=== PATIENT | female | born 1990 | race Hispanic/Latino ===

== ENCOUNTER 2018-11-29 22:07 | Emergency (ER) | payer BC, OTHER ==
[2018-11-29 23:38] LABS: Absolute Lymphocytes (CBC) 2.5 K/uL (0.7-4.9); Absolute Monocytes 0.6 K/uL (0.1-1.3); Absolute Neutrophil 4.4 K/uL (1.8-8.0); Basophils % 0.6 % (0-1.3); Eosinophils % 2.6 % (0-4.4); Hematocrit 39.2 % (36.0-45.0); Lymphocytes % 31.6 % (15.3-44.8); MPV 10.5 fL (7.6-11.3); Monocytes % 8.3 % (3.3-12.3); RBC Red Blood Cell Count 5.13 M/uL (3.86-4.86)
[2018-11-29 23:54] LABS: BUN Blood Urea Nitrogen 9 mg/dL (7-18); Bicarbonate 30 mmol/L (21-32); Glucose Level 96 mg/dL (74-106); Sodium Level 141 mmol/L (136-145); Troponin (Emerg Dept Use Only) < 0.02 ng/mL (0.0-0.045)
[2018-11-30] MEDS ORDERED: KETOROLAC 30 MG/ML INJ ONE (00:19)
--- NOTE | 2018-11-30 00:25 | ER ---
Nurse's Notes [facility] Name: Светлана Mcgregor Age: 28 yrs Sex: Female : 1990 Arrival Date: 11/29/2018 Time: 22:09 Bed 19 Private MD: Diaz Bruner E Diagnosis: Chest pain, unspecified Presentation: 11/29 22:21 Presenting complaint: Patient states: started to have left chest tightness whenever I rr5 stretch my arm and the pain going to my left arm. pain score of 5/10. I feel dizzy, light headed and nauseous also. Transition of care: patient was not received from another setting of care. Onset of symptoms was November 29, 2018. Risk Assessment: Do you want to hurt yourself or someone else? Patient reports no desire to harm self or others. Initial Sepsis Screen: Does the patient meet any 2 criteria? No. Patient's initial sepsis screen is negative. Does the patient have a suspected source of infection? No. Patient's initial sepsis screen is negative. Care prior to arrival: None. 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 - Social history:: Smoking status: Patient/guardian denies using tobacco, Patient/guardian denies using alcohol, street drugs. - Ebola Screening: : Patient negative for fever greater than or equal to 101.5 degrees Fahrenheit, and additional compatible Ebola Virus Disease symptoms Patient denies exposure to infectious person Patient denies travel to an Ebola-affected area in the 21 days before illness onset. Screenin:25 Abuse screen: Denies threats or abuse. Denies injuries from another. Nutritional rr5 screening: No deficits noted. Tuberculosis screening: No symptoms or risk factors identified. Fall Risk IV access (20 points). Total Puentes Fall Scale indicates No Risk (0-24 pts). Assessment: 22:25 General: Appears in no apparent distress. uncomfortable, Behavior is calm, cooperative, rr5 appropriate for age. Pain: Complains of pain in chest Pain radiates to left shoulder Pain currently is 6 out of 10 on a pain scale. Quality of pain is described as aching, Pain began gradually, Is intermittent, Aggravated by increased activity. Neuro: Level of Consciousness is awake, alert, obeys commands, Oriented to person, place, time, situation, Appropriate for age Reports dizziness, light headed. Cardiovascular: Reports chest pain, Capillary refill < 3 seconds Patient's skin is warm and dry. 22:25 Respiratory: Airway is patent Respiratory effort is even, unlabored, Respiratory rr5 pattern is regular, symmetrical. GI: Reports nausea. : No signs and/or symptoms were reported regarding the genitourinary system. EENT: No signs and/or symptoms were reported regarding the EENT system. Derm: Skin is intact, Skin temperature is warm. Musculoskeletal: Capillary refill < 3 seconds, Range of motion: intact in all extremities. 23:23 Reassessment: Patient appears in no apparent distress at this time. No changes from rr5 previously documented assessment. 11/30 00:30 Reassessment: Patient appears in no apparent distress at this time. refused for pain rr5 medication she feels fine as verbalized. discharge instruction given and explained without complaints made. Patient states feeling better. Patient states symptoms have improved. Vital Signs: 11/29 22:21 BP 119 / 68; Pulse 75; Resp 16; Temp 98.2; Pulse Ox 100% ; Weight 83.91 kg; Height 5 rr5 ft. 3 in. (160.02 cm); Pain 5/10; 23:20 BP 99 / 60; Pulse 77; Resp 16; Pulse Ox 99% ; rr5 11/30 00:30 BP 103 / 70; Pulse 75; Resp 16; Pulse Ox 99% ; rr5 11/29 22:21 Body Mass Index 32.77 (83.91 kg, 160.02 cm) rr5 ED Course: 11/29 22:09 Patient arrived in ED. am2 22:10 Diaz Bruner MD is Private Physician. am2 22:21 Willy Coleman RN is Primary Nurse. rr5 22:23 Triage completed. rr5 22:25 Arm band placed on right wrist. rr5 22:25 carpentry specialist on. Pulse ox on. NIBP on. rr5 22:25 Patient has correct armband on for positive identification. Placed in gown. Bed in low rr5 position. Call light in reach. Side rails up X2. 22:38 Waqas Cedillo MD is Attending Physician. 23:06 EKG done, by ED staff, reviewed by Waqas Cedlilo MD. ds4 23:20 Inserted saline lock: 20 gauge in right forearm, using aseptic technique. Blood rr5 collected. 23:20 No provider procedures requiring assistance completed. Patient maintains SpO2 rr5 saturation greater than 95% on room air. 23:32 X-ray completed. Portable x-ray completed in exam room. Patient tolerated procedure sg4 well. 23:34 XRAY Chest (1 view) In Process Unspecified. EDMS 11/30 00:34 IV discontinued, intact, bleeding controlled, No redness/swelling at site. Pressure rr5 dressing applied. Administered Medications: 00:16 Not Given (Patient Refused): TORadol 30 mg IVP once rr5 Outcome: 00:24 Discharge ordered by MD. 00:34 Discharged to home ambulatory, with family. rr5 00:34 Condition: stable 00:34 Discharge instructions given to patient, Instructed on discharge instructions, follow up and referral plans. Demonstrated understanding of instructions, follow-up care. 00:35 Patient left the ED. rr5 Signatures: Dispatcher [employer] EDIL Konstantin Sheffield ds4 Taylor Linton am2 Waqas Cedillo MD MD gs Garcia, Susana sg4 Willy Coleman, RN RN rr5
--- NOTE | 2018-11-30 00:25 | EDPHYS ---
Physician Documentation [facility] Name: Светлана Mcgregor Age: 28 yrs Sex: Female : 1990 Arrival Date: 11/29/2018 Time: 22:09 Bed 19 Private MD: Diaz Bruner E ED Physician Waqas Cedillo HPI: 11/30 00:16 This 28 yrs old Female presents to ER via Ambulatory with complaints of Chest gs Tightness. 00:16 The patient or guardian reports chest pain that is located primarily in the anterior gs chest wall, left. The pain does not radiate. Associated signs and symptoms: Pertinent positives: dizziness, positional, Pertinent negatives: shortness of breath. The chest pain is described as dull. Duration: The patient or guardian reports multiple episodes, that are intermittent, that wax and wane, with no pattern. Modifying factors: the symptoms are aggravated by deep breath, twisting torso. Severity of pain: At its worst the pain was moderate in the emergency department the pain is unchanged. The patient has experienced similar episodes in the past, a few times. ED EDUCATIONAL AIDE: 11/29 22:21 LMP 11/14/2018 rr5 Historical: - Allergies: 22:25 No Known Allergies; rr5 - Home Meds: 22:25 None [Active]; rr5 - PMHx: 22:25 Anemia; rr5 - PSHx: 22:25 None; rr5 - Immunization history:: Adult Immunizations up to date. - Social history:: Smoking status: Patient/guardian denies using tobacco, Patient/guardian denies using alcohol, street drugs. - Ebola Screening: : Patient negative for fever greater than or equal to 101.5 degrees Fahrenheit, and additional compatible Ebola Virus Disease symptoms Patient denies exposure to infectious person Patient denies travel to an Ebola-affected area in the 21 days before illness onset. ROS: 11/30 00:16 All other systems are negative. gs Exam: 00:16 Head/Face: Normocephalic, atraumatic. Eyes: Pupils equal round and reactive to light, gs extra-ocular motions intact. Lids and lashes normal. Conjunctiva and sclera are non-icteric and not injected. Cornea within normal limits. Periorbital areas with no swelling, redness, or edema. ENT: Nares patent. No nasal discharge, no septal abnormalities noted. Tympanic membranes are normal and external auditory canals are clear. Oropharynx with no redness, swelling, or masses, exudates, or evidence of obstruction, uvula midline. Mucous membranes moist. Neck: Trachea midline, no thyromegaly or masses palpated, and no cervical lymphadenopathy. Supple, full range of motion without nuchal rigidity, or vertebral point tenderness. No Meningismus. Chest/axilla: Normal chest wall appearance and motion. Nontender with no deformity. No lesions are appreciated. Cardiovascular: Regular rate and rhythm with a normal S1 and S2. No gallops, murmurs, or rubs. Normal PMI, no JVD. No pulse deficits. Respiratory: Lungs have equal breath sounds bilaterally, clear to auscultation and percussion. No rales, rhonchi or wheezes noted. No increased work of breathing, no retractions or nasal flaring. Abdomen/GI: Soft, non-tender, with normal bowel sounds. No distension or tympany. No guarding or rebound. No evidence of tenderness throughout. Back: No spinal tenderness. No costovertebral tenderness. Full range of motion. Skin: Warm, dry with normal turgor. Normal color with no rashes, no lesions, and no evidence of cellulitis. MS/ Extremity: Pulses equal, no cyanosis. Neurovascular intact. Full, normal range of motion. Neuro: Awake and alert, GCS 15, oriented to person, place, time, and situation. Cranial nerves II-XII grossly intact. Motor strength 5/5 in all extremities. Sensory grossly intact. Cerebellar exam normal. Normal gait. 00:16 Constitutional: The patient appears alert, awake. 00:16 ECG was reviewed by the Attending Physician. Vital Signs: 11/29 22:21 BP 119 / 68; Pulse 75; Resp 16; Temp 98.2; Pulse Ox 100% ; Weight 83.91 kg; Height 5 rr5 ft. 3 in. (160.02 cm); Pain 5/10; 23:20 BP 99 / 60; Pulse 77; Resp 16; Pulse Ox 99% ; rr5 11/30 00:30 BP 103 / 70; Pulse 75; Resp 16; Pulse Ox 99% ; rr5 11/29 22:21 Body Mass Index 32.77 (83.91 kg, 160.02 cm) rr5 MDM: 11/29 22:58 Patient medically screened. 11/30 00:16 Differential diagnosis: coronary artery disease chest wall pain, pulmonary embolus. Data reviewed: vital signs, nurses notes. Response to treatment: the patient's symptoms have resolved after treatment, and as a result, I will discharge patient. 11/29 22:59 Order name: Basic Metabolic Panel; Complete Time: 00:05 11/29 22:59 Order name: CBC with Diff; Complete Time: 00:05 11/29 22:59 Order name: Troponin (emerg Dept Use Only); Complete Time: 00:05 11/29 22:59 Order name: XRAY Chest (1 view) 11/29 22:59 Order name: D-Dimer; Complete Time: 00:05 11/29 22:59 Order name: EKG; Complete Time: 23:01 11/29 22:59 Order name: Cardiac monitoring; Complete Time: 23:09 11/29 22:59 Order name: EKG - Nurse/Tech; Complete Time: 23:06 11/29 22:59 Order name: IV Saline Lock; Complete Time: 23:21 11/29 22:59 Order name: Labs collected and sent; Complete Time: 23:21 11/29 22:59 Order name: O2 Per Protocol; Complete Time: 23:09 11/29 22:59 Order name: O2 Sat Monitoring; Complete Time: 23:10 EC:16 Rate is 75 beats/min. Rhythm is regular. CO interval is normal. QRS interval is normal. QT interval is normal. T waves are Normal. No ST changes noted. Clinical impression: Normal ECG. Interpreted by me. Administered Medications: 00:16 Not Given (Patient Refused): TORadol 30 mg IVP once rr5 Disposition: 11/30/18 00:24 Discharged to Home. Impression: Chest pain, unspecified. - Condition is Stable. - Discharge Instructions: Nonspecific Chest Pain. - Medication Reconciliation Form, Thank You Letter, Antibiotic Education, Prescription Opioid Use form. - Follow up: Private Physician; When: 2 - 3 days; Reason: Re-evaluation by your physician. Signatures: Dispatcher [facility] Waqas Parr MD MD Willy Coleman RN RN rr5 Corrections: (The following items were deleted from the chart) 00:35 00:24 11/30/2018 00:24 Discharged to Home. Impression: Chest pain, unspecified. rr5 Condition is Stable. Forms are Medication Reconciliation Form, Thank You Letter, Antibiotic Education, Prescription Opioid Use. Follow up: Private Physician; When: 2 - 3 days; Reason: Re-evaluation by your physician. gs
--- NOTE | 2018-11-30 06:19 | EKG ---
Test Date: 2018-11-29 Test Time: 22:40:52 Blade Grader Operator: MARY MEASUREMENT RESULTS: Intervals: Rate: 75 OK: 142 QRSD: 78 QT: 366 QTc: 408 Addison: P: 50 OK: 142 QRS: 32 T: 29 INTERPRETIVE STATEMENTS: Normal sinus rhythm Normal ECG Compared to ECG 02/28/2016 17:12:46 No significant changes Electronically Signed On 11-30-18 06:14:10 CLOTHES DRIER REPAIRER by Jorden Robledo
--- NOTE | 2018-11-30 11:00 | RAD REPORT ---
EXAM DESCRIPTION: RAD - Chest Single View - 11/29/2018 11:34 pm CLINICAL HISTORY: CHEST PAIN Chest pain. COMPARISON: Chest Pa And Lat (2 Views) dated 02/28/2016 FINDINGS: Portable technique limits examination quality. The lungs are grossly clear. The heart is normal in size. No displaced fractures. IMPRESSION: No acute intrathoracic process suspected.
== END 2018-11-30 00:35 | disposition home or self-care (01) ==
LOC: ER 22:07
DX: R07.9 Chest pain, unspecified (principal)
CPT/HCPCS: 36415; 71045; 80048; 84484; 85025; 85379; 93005; 99285